=== PATIENT | female | born 1980 | race Caucasian/White ===

== ENCOUNTER 2021-02-19 19:38 | Emergency (ER) | payer OTHER ==
[2021-02-19] MEDS ORDERED: ONDANSETRON ODT4 MG SL (23:30)
[2021-02-19] MEDS ORDERED: TESSALON PERLE100 MG PO (23:30)
[2021-02-19] MEDS ORDERED: BENTYL10 MG PO (23:30)
== END 2021-02-19 23:55 | disposition home or self-care (01) ==
LOC: FER 19:38
DX: R10.9 Unspecified abdominal pain (principal); F17.210 Nicotine dependence, cigarettes, uncomplicated; Z20.822 Contact with and (suspected) exposure to COVID-19
CPT/HCPCS: 99284; U0002